=== PATIENT | male | born 1975 | race Caucasian/White ===

== ENCOUNTER 2021-11-15 19:20 | Emergency (ER) | payer MEDICAID ==
[~2021-11-15] VITALS: Ht 175.3 cm; Wt 90.0 kg
[2021-11-15 20:46] VITALS: BP 151/69
[2021-11-15 21:07] LABS: BASOPHILS % (AUTO) 0.7 % (0.0-2.0); EOSINOPHILS % (AUTO) 3.9 % (1.0-6.0); HEMATOCRIT 41.5 % (41-53); HEMOGLOBIN 13.8 g/dL (13.5-17.5); LYMPHOCYTES # (AUTO) 2.2 K/uL (1.0-4.8); LYMPHOCYTES % (AUTO) 27.2 % (22.0-44.0); MEAN CORPUSCULAR HEMOGLOBIN 29.4 pg (26.0-34.0); MEAN CORPUSCULAR HGB CONC 33.2 G/dL (31.0-37.0); MEAN CORPUSCULAR VOLUME 88 fL (80-100); MONOCYTES # (AUTO) 0.8 K/uL (0.1-1.0); MONOCYTES % (AUTO) 9.4 % (2.0-9.0); NEUTROPHILS # (AUTO) 4.8 K/uL (1.8-7.7); NEUTROPHILS % (AUTO) 58.8 % (40.0-70.0); PLATELET COUNT (AUTO) 320 K/uL (150-450); RED BLOOD CELL COUNT(AUTO) 4.69 MIL/uL (4.50-5.90); RED CELL DISTRIBUTION WIDTH 13.6 % (11.5-14.5)
[2021-11-15 21:16] LABS: ANION GAP 7 mmol/L (8-16); CARBON DIOXIDE 28 mmol/L (22-29); CHLORIDE 105 mmol/L (98-107); CREATININE 0.74 mg/dL (0.60-1.30); GLOMERULAR FILTR. RATE CALC > 60 mL/min (>60); GLUCOSE,RANDOM 100 mg/dL (70-110); POTASSIUM 3.9 mmol/L (3.5-5.1); SODIUM SERUM 140 mmol/L (136-145); UREA NITROGEN, BLOOD 13 mg/dL (7-18)
[2021-11-15 21:21] LABS: ALANINE AMINOTRANSFERASE 36 U/L (12-78); ALBUMIN 3.2 g/dL (3.4-5.0); ALKALINE PHOSPHATASE 69 U/L (46-116); ASPARTATE AMINOTRANSFERASE 24 U/L (15-37); BILIRUBIN,TOTAL 0.3 mg/dL (0.1-1.0); TOTAL PROTEIN, SERUM 6.6 g/dL (6.4-8.2)
[2021-11-15 21:26] LABS: AMPHET/METH SCREEN,URINE POSITIVE (NEGATIVE); BARBITURATE SCREEN, URINE NEGATIVE (NEGATIVE); BENZODIAZEPINES SCREEN,URINE NEGATIVE (NEGATIVE); CANNABINOID SCREEN,URINE POSITIVE (NEGATIVE); COCAINE SCREEN,URINE NEGATIVE (NEGATIVE); METHADONE SCREEN, URINE NEGATIVE (NEGATIVE); OPIATE SCREEN,URINE NEGATIVE (NEGATIVE); PHENCYCLIDINE SCREEN,URINE NEGATIVE (NEGATIVE)
[2021-11-15] MEDS ORDERED: HALOPERIDOL 5 MG TABLET PO ONE (21:45)
[2021-11-15] MEDS ORDERED: LORazepam 2 MG TABLET PO ONE (21:45)
== END 2021-11-16 06:03 | disposition home or self-care (01) ==
LOC: EMS 19:22
DX: R44.0 Auditory hallucinations (principal); R45.1 Restlessness and agitation; F15.90 Other stimulant use, unspecified, uncomplicated; F12.90 Cannabis use, unspecified, uncomplicated
CPT/HCPCS: 36415; 80053; 80307; 85025; 99285; G0480

== ENCOUNTER 2021-11-21 14:31 | Inpatient (IN) | payer MEDICAID ==
[~2021-11-21] VITALS: Ht 175.3 cm; Wt 86.5 kg
[2021-11-21 16:33] LABS: BASOPHILS % (AUTO) 0.7 % (0.0-2.0); EOSINOPHILS % (AUTO) 2.8 % (1.0-6.0); HEMATOCRIT 40.4 % (41-53); HEMOGLOBIN 13.7 g/dL (13.5-17.5); LYMPHOCYTES # (AUTO) 1.5 K/uL (1.0-4.8); LYMPHOCYTES % (AUTO) 12.6 % (22.0-44.0); MEAN CORPUSCULAR HEMOGLOBIN 29.7 pg (26.0-34.0); MEAN CORPUSCULAR VOLUME 87 fL (80-100); MONOCYTES # (AUTO) 0.8 K/uL (0.1-1.0); MONOCYTES % (AUTO) 6.5 % (2.0-9.0); NEUTROPHILS # (AUTO) 9.2 K/uL (1.8-7.7); NEUTROPHILS % (AUTO) 77.4 % (40.0-70.0); PLATELET COUNT (AUTO) 295 K/uL (150-450); RED BLOOD CELL COUNT(AUTO) 4.63 MIL/uL (4.50-5.90); RED CELL DISTRIBUTION WIDTH 13.4 % (11.5-14.5)
[2021-11-21 16:42] LABS: ANION GAP 6 mmol/L (8-16); CALCIUM, TOTAL 8.9 mg/dL (8.8-10.5); CARBON DIOXIDE 30 mmol/L (22-29); CHLORIDE 105 mmol/L (98-107); CREATININE 0.84 mg/dL (0.60-1.30); GLOMERULAR FILTR. RATE CALC > 60 mL/min (>60); GLUCOSE,RANDOM 96 mg/dL (70-110); POTASSIUM 4.1 mmol/L (3.5-5.1); SODIUM SERUM 141 mmol/L (136-145); UREA NITROGEN, BLOOD 18 mg/dL (7-18)
[2021-11-21 16:46] LABS: LITHIUM < 0.20 mmol/L (0.60-1.20)
[2021-11-21 16:48] LABS: ALANINE AMINOTRANSFERASE 44 U/L (12-78); ALBUMIN 3.4 g/dL (3.4-5.0); ALKALINE PHOSPHATASE 75 U/L (46-116); ASPARTATE AMINOTRANSFERASE 42 U/L (15-37); BILIRUBIN,TOTAL 0.6 mg/dL (0.1-1.0); TOTAL PROTEIN, SERUM 6.8 g/dL (6.4-8.2)
[2021-11-21 17:33] LABS: COVID AG,FIA SOURCE NASAL SWAB
[2021-11-21] MEDS ORDERED: LORazepam 2 MG TABLET PO PRN (20:45)
[2021-11-22 09:15] VITALS: BP 139/62
[2021-11-22 16:08] VITALS: BP 130/76
[2021-11-22] MEDS: OLANZapine 5 MG TABLET PO SCH (17:02)
[2021-11-22 18:17] LABS: APPEARANCE,URINE HAZY (CLEAR); BILIRUBIN,URINE NEGATIVE (NEGATIVE); GLUCOSE, URINE (UA) NEGATIVE (NEGATIVE); KETONES,URINE NEGATIVE (NEGATIVE); LEUKOCYTE ESTERASE ,URINE NEGATIVE (NEGATIVE); NITRATE,URINE NEGATIVE (NEGATIVE); OCCULT BLOOD,URINE NEGATIVE (NEGATIVE); PROTEIN,URINE NEGATIVE (NEGATIVE); SPECIFIC GRAVITIY, URINE 1.016 (1.003-1.030); UROBILINOGEN,URINE <=1.0 mg/dL (<=1.0)
[2021-11-22 18:23] LABS: AMPHET/METH SCREEN,URINE POSITIVE (NEGATIVE); BARBITURATE SCREEN, URINE NEGATIVE (NEGATIVE); BENZODIAZEPINES SCREEN,URINE NEGATIVE (NEGATIVE); CANNABINOID SCREEN,URINE NEGATIVE (NEGATIVE); COCAINE SCREEN,URINE NEGATIVE (NEGATIVE); METHADONE SCREEN, URINE NEGATIVE (NEGATIVE); OPIATE SCREEN,URINE NEGATIVE (NEGATIVE); PHENCYCLIDINE SCREEN,URINE NEGATIVE (NEGATIVE)
[2021-11-23] MEDS: OLANZapine 5 MG TABLET PO SCH ×2 (09:17→16:31)
[2021-11-23 11:08] VITALS: BP 119/64
[2021-11-23] MEDS ORDERED: CloNIDine HCL 0.1 MG TABLET PO PRN (12:30)
[2021-11-23] MEDS ORDERED: DOCUSATE SODIUM 100 MG CAPSULE PO PRN (12:30)
[2021-11-23] MEDS ORDERED: MAGNESIUM HYDROXIDE SUSPENSION 30 ML UDCUP PO PRN (12:30)
[2021-11-23] MEDS ORDERED: ONDANSETRON HCL 4 MG TABLET PO PRN (12:30)
[2021-11-23] MEDS ORDERED: NICOTINE 14 MG/24 HOUR PATCH TD PRN (12:30)
[2021-11-23] MEDS ORDERED: ALBUTEROL SULFATE HFA 90 MCG/PUFF 8 GM INHALER IH PRN (12:30)
[2021-11-23] MEDS ORDERED: IBUPROFEN 400 MG TABLET PO PRN (12:30)
[2021-11-23] MEDS ORDERED: LOPERAMIDE HCL 2 MG CAPSULE PO PRN (12:30)
[2021-11-23] MEDS ORDERED: GuaiFENesin/D-METHORPHAN [SUGAR-FREE] 200-20MG/10 ML SYRUP UDCUP PO PRN (12:30)
[2021-11-23] MEDS ORDERED: ACETAMINOPHEN 325 MG TABLET PO PRN (12:30)
[2021-11-23] MEDS ORDERED: MAG HYDROX/AL HYDROX/SIMETH ES 30 ML SUSPENSION UDCUP PO PRN (12:30)
[2021-11-23] MEDS ORDERED: PETROLATUM,WHITE 28 GM JELLY TP PRN (12:30)
[2021-11-23 16:00] VITALS: BP 126/76
[2021-11-24] MEDS: OLANZapine 5 MG TABLET PO SCH ×2 (07:50→16:16)
[2021-11-24 11:29] VITALS: BP 136/78
[2021-11-24 16:22] VITALS: BP 124/69
[2021-11-25] MEDS: OLANZapine 5 MG TABLET PO SCH ×2 (09:04→17:20)
[2021-11-25 10:08] VITALS: BP 117/73
[2021-11-25 16:52] VITALS: BP 134/82
[2021-11-25] MEDS: HALOPERIDOL 5 MG TABLET PO PRN (17:20)
[2021-11-26 08:00] VITALS: BP 138/87
[2021-11-26] MEDS: OLANZapine 5 MG TABLET PO SCH ×2 (08:14→16:30)
[2021-11-26] MEDS: HALOPERIDOL 5 MG TABLET PO PRN (16:30)
[2021-11-26 16:41] VITALS: BP 135/74
[2021-11-27 06:09] LABS: BASOPHILS % (AUTO) 0.6 % (0.0-2.0); EOSINOPHILS % (AUTO) 4.5 % (1.0-6.0); HEMATOCRIT 44.3 % (41-53); HEMOGLOBIN 14.9 g/dL (13.5-17.5); LYMPHOCYTES # (AUTO) 1.5 K/uL (1.0-4.8); LYMPHOCYTES % (AUTO) 19.4 % (22.0-44.0); MEAN CORPUSCULAR HEMOGLOBIN 29.4 pg (26.0-34.0); MEAN CORPUSCULAR HGB CONC 33.5 G/dL (31.0-37.0); MEAN CORPUSCULAR VOLUME 88 fL (80-100); MONOCYTES # (AUTO) 0.6 K/uL (0.1-1.0); MONOCYTES % (AUTO) 8.4 % (2.0-9.0); NEUTROPHILS % (AUTO) 67.1 % (40.0-70.0); PLATELET COUNT (AUTO) 342 K/uL (150-450); RED BLOOD CELL COUNT(AUTO) 5.06 MIL/uL (4.50-5.90); RED CELL DISTRIBUTION WIDTH 13.6 % (11.5-14.5)
[2021-11-27] MEDS: OLANZapine 5 MG TABLET PO SCH ×2 (08:31→16:33)
[2021-11-27 09:14] VITALS: BP 132/77
[2021-11-27 09:54] LABS: COVID AG,FIA SOURCE NASAL SWAB
[2021-11-27] MEDS: SULFAMETHOX/TRIMETH DS 800-160 MG/TABLET PO SCH ×2 (12:11→16:33)
[2021-11-27] MEDS: CEPHALEXIN MONOHYDRATE 500 MG CAPSULE PO SCH ×2 (13:50→16:33)
[2021-11-27 16:39] VITALS: BP 139/85
[2021-11-28 08:00] VITALS: BP 139/87
[2021-11-28] MEDS: OLANZapine 5 MG TABLET PO SCH ×2 (08:13→16:57)
[2021-11-28] MEDS: ASCORBIC ACID 500 MG TABLET PO SCH (08:13)
[2021-11-28] MEDS: CEPHALEXIN MONOHYDRATE 500 MG CAPSULE PO SCH ×3 (08:13→16:57)
[2021-11-28] MEDS: MULTIVITAMINS WITH MINERALS, THERAPEUTIC TABLET PO SCH (08:13)
[2021-11-28] MEDS: SULFAMETHOX/TRIMETH DS 800-160 MG/TABLET PO SCH ×2 (08:13→16:57)
[2021-11-28 16:04] VITALS: BP 118/61
[2021-11-29 08:00] VITALS: BP 145/79
[2021-11-29] MEDS: SULFAMETHOX/TRIMETH DS 800-160 MG/TABLET PO SCH ×2 (08:25→16:02)
[2021-11-29] MEDS: CEPHALEXIN MONOHYDRATE 500 MG CAPSULE PO SCH ×3 (08:25→16:02)
[2021-11-29] MEDS: MULTIVITAMINS WITH MINERALS, THERAPEUTIC TABLET PO SCH (08:25)
[2021-11-29] MEDS: OLANZapine 5 MG TABLET PO SCH ×2 (08:25→16:02)
[2021-11-29] MEDS: ASCORBIC ACID 500 MG TABLET PO SCH (08:25)
[2021-11-29 17:07] VITALS: BP 123/72
[2021-11-29] MEDS: ZOLPIDEM TARTRATE 10 MG TABLET PO PRN (20:29)
[2021-11-30] MEDS: CEPHALEXIN MONOHYDRATE 500 MG CAPSULE PO SCH ×3 (08:05→16:04)
[2021-11-30] MEDS: OLANZapine 5 MG TABLET PO SCH ×2 (08:05→16:04)
[2021-11-30] MEDS: MULTIVITAMINS WITH MINERALS, THERAPEUTIC TABLET PO SCH (08:06)
[2021-11-30] MEDS: ASCORBIC ACID 500 MG TABLET PO SCH (08:06)
[2021-11-30] MEDS: SULFAMETHOX/TRIMETH DS 800-160 MG/TABLET PO SCH ×2 (08:06→16:03)
[2021-11-30 09:00] VITALS: BP 118/64
[2021-11-30 16:08] VITALS: BP 132/72
[2021-11-30] MEDS: ZOLPIDEM TARTRATE 10 MG TABLET PO PRN (20:46)
[2021-12-01] MEDS: ASCORBIC ACID 500 MG TABLET PO SCH (08:50)
[2021-12-01] MEDS: MULTIVITAMINS WITH MINERALS, THERAPEUTIC TABLET PO SCH (08:50)
[2021-12-01] MEDS: SULFAMETHOX/TRIMETH DS 800-160 MG/TABLET PO SCH (08:50)
[2021-12-01] MEDS: CEPHALEXIN MONOHYDRATE 500 MG CAPSULE PO SCH ×2 (08:50→13:27)
[2021-12-01] MEDS: OLANZapine 5 MG TABLET PO SCH (08:50)
[2021-12-01 10:21] VITALS: BP 146/74
[2021-12-01] MEDS ORDERED: OLAN5TAB52 PO (11:25)
[2021-12-01] MEDS ORDERED: ASCO500 PO (13:45)
[2021-12-01] MEDS ORDERED: CEPH-558 PO (13:46)
[2021-12-01] MEDS ORDERED: SULF-261 PO (13:47)
[2021-12-01] MEDS ORDERED: MULT-1239 PO (13:47)
== END 2021-12-01 15:00 | disposition home or self-care (01) | DRG 750 ==
LOC: EMS 14:35 → 3EI 11-22 09:15
PROVIDERS: ADMIT Psychiatry & Neurology Child & Adolescent Psychiatry; ATTEND Psychiatry & Neurology Child & Adolescent Psychiatry
DX: F20.0 Paranoid schizophrenia (principal); D72.829 Elevated white blood cell count, unspecified; F15.10 Other stimulant abuse, uncomplicated; F41.9 Anxiety disorder, unspecified; F10.20 Alcohol dependence, uncomplicated; R10.13 Epigastric pain; F12.10 Cannabis abuse, uncomplicated; Z20.822 Contact with and (suspected) exposure to COVID-19; Y90.9 Presence of alcohol in blood, level not specified; Z71.41 Alcohol abuse counseling and surveillance of alcoholic; Z71.51 Drug abuse counseling and surveillance of drug abuser
CPT/HCPCS: 76881; 80053; 80178; 80307; 81003; 85025; 99285; G0480